=== PATIENT | male | born 2000 | race Two or more races ===

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

== ENCOUNTER → 2022-02-05 09:32 | Outpatient (BNVA) | payer MEDICAID, SELFPAY | PROVIDERS: PCP Nurse Practitioner; Visit Provider Internal Medicine Cardiovascular Disease | DX: R42 Dizziness and giddiness (principal); R07.9 Chest pain, unspecified; I45.6 Pre-excitation syndrome; I49.8 Other specified cardiac arrhythmias; R94.31 Abnormal electrocardiogram [ECG] [EKG]; E78.00 Pure hypercholesterolemia, unspecified; F41.9 Anxiety disorder, unspecified | CPT/HCPCS: 93005; 99202 ==

== ENCOUNTER → 2022-02-20 07:52 | Outpatient (REF) | payer MEDICAID, SELFPAY ==
--- NOTE | 2022-02-20 08:01 | CA_ITS ---
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 Prior to exercise he reported some sharp pains in his chest that resolved and did not reoccur with exercise. Test reviewed with Dr Olivarez. Referred By: Raman Olivarez Overread By: MARYLIN KOHLER
--- NOTE | 2022-02-20 08:01 | CA_ITS ---
Transthoracic Echocardiogram Patient (Last, First, Middle): Sushil Barroso, Gender: Male Date of : 2000 Age: 21 Procedure Date: 02/20/2022 Procedure Type: Transthoracic Echocardiogram Location: OP Height: 185.42 cm Weight: 95.26 kg BSA: 2.20 m2 Heart Rate: 55 bpm BP: 118 / 60 mmHg Needle Loom Setter: SB Referring MD: Raman Olivarez MD Symptoms: I45.6 - Pre-excitation syndrome Study Quality: Adequate w contrast ECG Rhythm: Bradycardia Conclusions: - Essentially normal stufy. Findings Procedure Information Contrast agent, definity, is being given per protocol without apparent complications. Left Ventricle Normal left ventricular size, thickness, systolic function, and wall motion. The visually estimated ejection fraction is between 55-60%. Diastolic function is normal for age. Right Ventricle Normal right ventricular cavity size and systolic function. Atria Both atria are normal in size. Aortic Valve Normal aortic valve structure and function. There is no aortic valve stenosis. There is no aortic valve regurgitation. Mitral Valve Normal mitral valve structure and function. There is no mitral valve regurgitation. There is no mitral valve stenosis. Pulmonic Valve Normal pulmonic valve structure and function. There is trace pulmonic valve regurgitation. Tricuspid Valve Normal tricuspid valve structure and function. There is no tricuspid valve regurgitation. Normal right atrial pressure. There is no evidence of pulmonary hypertension. Great Vessels All visible segments of the aorta are normal in size. The visualized portions of the pulmonary artery and branches are normal. Venous The inferior vena cava is normal in size and collapses greater than 50% with inspiration. Pericardium/Pleural There is no evidence of pericardial effusion. Prior Study Comparison No prior study available for comparison. Measurements 2D Linear Measurements IVSd: 0.77 0.6-0.9/0.6-1.0 cm LVIDd: 5.81 3.9-5.3/4.2-5.9 cm LVIDd Index: 2.64 2.4-3.2/2.2-3.1 cm/m2 LVIDs: 4.24 2.0-3.6 cm LVPWd: 0.55 0.7-1.1 cm LA Diam: 3.60 2.7-3.8/3.0-4.0 cm LAIDs Index: 1.64 1.5-2.3 cm/m2 LV Mass: 173.32 67-162/88-224 g LV Mass Index: 78.78 43-95/49-115 g/m2 LVOT Diam: 2.30 3.0+(-)1.3 cm 2D Systolic Function EF 4C: 59.70 >55% EF 2C: 67.80 >55% EF BiP: 63.40 >55% Mitral Valve MV Pk E: 0.77 MV PK A: 0.38 MV Decel Time: 228.00 E/A: 2.00 E'Lateral: 16.30 E'Medial: 11.00 E/E' Med: 7.00 E/E' Lat: 4.70 PHT: 67.00 MVA PHT: 3.28 Decel [place]: 3.36 Aortic Valve AoV Pk Sage: 1.38 AoV Mn Sage: 0.96 AoV VTI: 0.31 AoV Pk Grad: 8.00 Aov Mn Grad: 4.00 DEYSI Cont.VTI: 3.23 LVOT LVOT Pk Sage: 1.19 LVOT Mn Sage: 0.82 LVOT VTI: 0.24 LVOT Pk Grad: 6.00 LVOT Mn Grad: 3.00 LVOT Diam: 2.30 LVOT Area: 4.15 Diastolic Function MV Pk E: 0.77 MV Pk A: 0.38 E/A: 2.00 E'Medial: 11.00 E/E' Med: 7.00 E' Laterial: 16.30 E/E' Lat: 4.70 Right Ventricle TAPSE (mm): 20.90 TVS' Sage: 11.50 Tricuspid Valve TR Pk Sage: 1.93 TR Pk Grad: 15.00 RA Press: 3.00 RVSP: 18.00 Great Vessels Aorta Sinus of Valsalva: 2.80 2.0-3.5 cm Ao Asc: 2.50 2.1-3.4 cm Pulmonary Veins Pulm Vein S/D 0.40 Pulmonary Valve PV Pk Sage: 0.98 Peak PV Grad: 4.00 Updated in Other Vendor System with Status of Final Raman Olivarez MD electronically signed on 02/20/2022 4:24:26 PM with status of Final
--- NOTE | 2022-02-20 08:01 | HM_ITS ---
* Total monitoring time 18 days with the compliance wear time of 9.4%. * Indication, pre-excitation syndrome * Underlying rhythm is sinus. Baseline rate 77/Min. Evidence of pre- excitation. * Rare supraventricular ectopy. * No significant arrhythmias. * Several symptoms mentioned including chest pain, chest pressure, dizziness, lightheadedness, irregular beat, tired all generally associated with sinus rhythm. MTDD
== END ==
LOC: HO.CARD 07:52
PROVIDERS: PCP Nurse Practitioner; Visit Provider Internal Medicine Cardiovascular Disease
DX: I45.6 Pre-excitation syndrome (principal)
CPT/HCPCS: 93017; 93270; 93306; Q9957

== ENCOUNTER 2022-03-22 06:17 | Emergency (ER) | payer MEDICAID, SELFPAY ==
--- NOTE | 2022-03-22 | ECG_ITS ---
Test Reason : sob Blood Pressure : / mmHG Vent. Rate : 050 BPM Atrial Rate : 050 BPM P-R Int : 110 ms QRS Dur : 142 ms QT Int : 476 ms P-R-T Axes : 071 -07 072 degrees QTc Int : 433 ms Sinus bradycardia with sinus arrhythmia Ytecb-Rzjlskvix-Xsgtb Abnormal ECG No previous ECGs available Referred By: Generic ED Physician Electronically Signed By:JANUARY SPANGLER MD
[2022-03-22 06:33] VITALS: BP 115/67; PULSE 50; RESP 20; TEMP 36.7; O2SAT 97; BMI 30.3
[2022-03-22 07:05] LABS: IDNOW Serial# 55D5AD1C; IDNOW Serial# 6674DD1D; Influenza A Negative (Negative); Influenza B2 Negative (Negative)
[2022-03-22 07:06] LABS: COVID-19 Test Negative (Negative)
[2022-03-22 07:36] VITALS: BP 109/60; PULSE 57; RESP 16; TEMP 36.4; O2SAT 100
--- NOTE | 2022-03-22 07:48 | ED.GENADULT ---
HPI - General Adult General Chief complaint: Dyspnea Stated complaint: dr perla told to come in, SOB Time Seen by Provider: 03/22/22 07:22 Source: patient Limitations: no limitations History of Present Illness HPI narrative: This is a 21-year-old male with history of Xkouq-Minbreetl-Qghjm, who was wearing an event monitor. The patient was changing out the monitor last night when he developed shortness of breath. The patient states symptoms did not last very long. Denies shortness of breath now. He has felt lightheaded off and on. Denies any chest pain, denies feeling like his heart was racing. He is wearing the event monitor for a month which is completing this coming weekend. Related Data Home Medications Medication Instructions Recorded Confirmed No Known Home Meds 02/05/22 02/05/22 Allergies Allergy/AdvReac Type Severity Reaction Status Date / Time No Known Allergies Allergy Verified 02/05/22 09:35 Review of Systems Review of Systems: Yes all other systems are reviewed and are negative Constitutional: Constitutional: Reports as per HPI and Denies fever(s) Eyes: Eyes: Reports as per HPI and Reports no additional eye complaints ENT: Reports system reviewed and no additional complaints, except as documented, Reports as per HPI, Reports dizziness, Denies nasal congestion, Denies nasal discharge and Denies sore throat Cardiovascular: Cardiovascular: Reports as per HPI, Denies chest pain and Reports dyspnea Respiratory: Respiratory: Reports as per HPI, Denies cough and Reports dyspnea Gastrointestinal: Gastrointestinal: Reports as per HPI, Denies abdominal pain, Denies diarrhea and Denies vomiting Musculoskeletal: Musculoskeletal: Reports no additional musculoskeletal complaints and Denies numbness Integumentary/Breasts: Skin/Breast: Reports as per HPI and Denies rash Neurologic: Reports as per HPI, Reports dizziness, Denies focal weakness and Denies numbness Psychiatric: Psychiatric: Reports no additional psychiatric complaints and Reports as per HPI Endocrine: Endocrine: Reports no additional endocrine complaints and Reports as per HPI Hematologic/Lymphatic: Hematologic/Lymphatic: Reports no additional hematologic/lymphatic complaints, Reports as per HPI and Reports other (No peripheral edema) [facility] Past Medical History Medical History (Updated 03/22/22 @ 08:34 by sAh Loja MD) High cholesterol Social History Social History (Updated 02/05/22 @ 09:44 by Nadia Archer) Alcohol intake: former Year quit: 2020 Patient Tobacco Use Status: Former Tobacco user Quit Date: 2021 Smoked in Last 30 Days: No Use of substances other than those prescribed or required for medical reasons: No Advance Directives: No Physical Exam ED Vital Signs: Vital Signs - 24 hr 03/22/22 06:33 03/22/22 07:36 Temperature 98.1 F 97.6 F Pulse Rate 50 57 Respiratory Rate 20 16 Blood Pressure 115/67 109/60 Pulse Oximetry 97 100 Oxygen Delivery Method Room Air Room Air BMI result Body Mass Index 30.3 Const General: no acute distress Orientation/consciousness: patient oriented x3 HENMT Head: Yes normal to inspection General nose exam: Normal external nose present Mouth: moist mucous membranes Throat: Yes posterior oropharynx normal, Yes tonsils normal and Yes uvula midline Eyes Eyelids: Yes eyelids normal Conjunctivae: conjunctivae normal Pupils: Equal, round and reactive pupils present Neck Neck: Yes supple Resp Effort & Inspection: normal respiratory effort Auscultation: clear to auscultation bilaterally Cardio Rate: regular rate Rhythm: regular rhythm Heart sounds: S1 normal heart sound present, S2 normal heart sound present, no gallops, no murmurs and no rubs GI Inspection: No distended Palpation (GI): Soft to palpation and nontender Auscultation: normal bowel sounds Skin General skin exam: other (Warm and dry) Neuro General: patient oriented x3 and CN's II-XI intact bilaterally Cranial nerves: Yes Equal, round and reactive pupils present Extrem General: Yes no pedal edema Psych Affect: normal affect Attitude: cooperative Medical Decision Making Medical Decision Making MDM Narrative: The patient experienced brief shortness of breath and had called the immigration guard, who ordered for the patient come to the ED. Differential Diagnosis Differential Diagnoses: The differential diagnosis associated with the presentation includes Tachyarrhythmia, congestive heart failure, pulmonary embolism, anxiety Consult Healthcare Provider Management of the patient was discussed with: Tierce Filler Discussed with Dr. Perla, who stated that the patient had called at around 3 in the morning, and not knowing the patient he wanted him evaluated to make sure he had no concerning cause for his dyspnea Lab Data [facility] Lab Attestation statement: I reviewed the patient's lab results. Result Diagrams: 03/22/22 08:05 03/22/22 08:05 Labs: Lab Results 03/22/22 03/22/22 03/22/22 Range/Units 06:39 06:39 08:05 WBC 7.7 (4.8-10.8) X10*3/uL RBC 5.12 (4.60-5.80) X10*6/uL Hgb 14.1 (14.0-18.0) g/dl Hct 41.6 L (42.0-52.0) % MCV 81.3 (80.0-98.0) fL MCH 27.5 (27.0-33.0) pg MCHC 33.9 (31.0-36.0) g/dl RDW 12.5 (11.0-16.0) % Plt Count 302 (160-400) X10*3/uL MPV 9.9 (9.4-12.4) fL Immature Gran % (Auto) 0.1 (0.0-0.4) % Neut % (Auto) 40.8 L (45-73) % Lymph % (Auto) 42.1 H (20-40) % Clinch % (Auto) 10.6 (2-11) % Eos % (Auto) 5.6 H (0-4) % Baso % (Auto) 0.8 (0-2) % Lymph # (Auto) 3.3 (1.2-4.9) X10*3/uL Clinch # (Auto) 0.8 (0.1-1.2) X10*3/uL Eos # (Auto) 0.4 (0.0-0.4) X10*3/uL Baso # (Auto) 0.1 (0.0-0.2) X10*3/uL Abs Immat Gran (auto) 0.01 (0.00-0.03) X10*3/uL Absolute Neuts (auto) 3.2 (2.0-8.3) x10*3/uL Absolute Nucleated RBC 0.000 (0.0-0.012) X10*3/uL Nucleated RBC % (auto) 0.0 (0.0-0.2) /100WBC Sodium (135-145) mmol/L Potassium (3.3-5.1) mmol/L Chloride (96-108) mmol/L Carbon Dioxide (22-29) mmol/L Anion Gap (12-20) BUN (9-16) mg/dL Creatinine (0.5-1.4) mg/dL Estim Creat Clear Calc Estimated GFR Random Glucose (60-115) mg/dL Calcium (8.4-10.2) mg/dL COVID-19 (MACEY) Negative (Negative) COVID-19 Clin Com See Note Influenza Type A (ALEXEY) Negative (Negative) Influenza Type B (ALEXEY) Negative (Negative) Influenza A & B Note See Note 03/22/22 Range/Units 08:05 WBC (4.8-10.8) X10*3/uL RBC (4.60-5.80) X10*6/uL Hgb (14.0-18.0) g/dl Hct (42.0-52.0) % MCV (80.0-98.0) fL MCH (27.0-33.0) pg MCHC (31.0-36.0) g/dl RDW (11.0-16.0) % Plt Count (160-400) X10*3/uL MPV (9.4-12.4) fL Immature Gran % (Auto) (0.0-0.4) % Neut % (Auto) (45-73) % Lymph % (Auto) (20-40) % Clinch % (Auto) (2-11) % Eos % (Auto) (0-4) % Baso % (Auto) (0-2) % Lymph # (Auto) (1.2-4.9) X10*3/uL Clinch # (Auto) (0.1-1.2) X10*3/uL Eos # (Auto) (0.0-0.4) X10*3/uL Baso # (Auto) (0.0-0.2) X10*3/uL Abs Immat Gran (auto) (0.00-0.03) X10*3/uL Absolute Neuts (auto) (2.0-8.3) x10*3/uL Absolute Nucleated RBC (0.0-0.012) X10*3/uL Nucleated RBC % (auto) (0.0-0.2) /100WBC Sodium 142 (135-145) mmol/L Potassium 4.0 (3.3-5.1) mmol/L Chloride 108 (96-108) mmol/L Carbon Dioxide 25 (22-29) mmol/L Anion Gap 13 (12-20) BUN 12 (9-16) mg/dL Creatinine 0.86 (0.5-1.4) mg/dL Estim Creat Clear Calc 175.2 Estimated GFR > 60 Random Glucose 85 (60-115) mg/dL Calcium 9.7 (8.4-10.2) mg/dL COVID-19 (MACEY) (Negative) COVID-19 Clin Com Influenza Type A (ALEXEY) (Negative) Influenza Type B (ALEXEY) (Negative) Influenza A & B Note Independent Interpretation I performed an independent interpretation of an: EKG Interpretation: Sinus bradycardia with a sinus arrhythmia, overall rate of 50. Delta waves present consistent with Wwvaj-Hjttjjmrf-Eyfkr. Short NM interval. Discharge Plan Discharge Clinical Impression: WPW (Qdoud-Ilydtkgvy-Edqav syndrome), Bradycardia Patient Disposition: Home, Self-Care Instructions: Bradycardia (ED), Abyka-Ukmkpzgbw-Rpkxm Syndrome (ED) Additional Instructions: Follow-up with your immigration guard or primary care physician. Return for any new or worsened symptoms. Your EKG here did not show any concerning findings except the underlying Fhuoo-Illamiinp-Sltws, but there was no rapid or irregular rhythm Prescriptions: No Action No Known Home Meds
[2022-03-22 08:10] LABS: MANUAL DIFF FLAG NO
[2022-03-22 08:12] LABS: Basophils Absolute Auto 0.1 X10*3/uL (0.0-0.2); Basophils Percent Auto 0.8 % (0-2); Eosinophils Absolute Auto 0.4 X10*3/uL (0.0-0.4); Eosinophils Percent Auto 5.6 % (0-4); Hematocrit 41.6 % (42.0-52.0); Hemoglobin 14.1 g/dl (14.0-18.0); Imm Gran Abs Auto 0.01 X10*3/uL (0.00-0.03); Imm Gran Pct Auto 0.1 % (0.0-0.4); Lymphocytes Absolute Auto 3.3 X10*3/uL (1.2-4.9); Lymphocytes Percent Auto 42.1 % (20-40); Mean Corpuscular HGB Conc 33.9 g/dl (31.0-36.0); Mean Corpuscular Hemoglobin 27.5 pg (27.0-33.0); Mean Corpuscular Volume 81.3 fL (80.0-98.0); Mean Platelet Volume 9.9 fL (9.4-12.4); Monocytes Absolute Auto 0.8 X10*3/uL (0.1-1.2); Monocytes Percent Auto 10.6 % (2-11); Neutrophils Absolute Auto 3.2 x10*3/uL (2.0-8.3); Neutrophils Percent Auto 40.8 % (45-73); Platelet Count 302 X10*3/uL (160-400); Red Blood Count 5.12 X10*6/uL (4.60-5.80); Red Cell Distribution Width 12.5 % (11.0-16.0); White Blood Count 7.7 X10*3/uL (4.8-10.8)
[2022-03-22 08:25] LABS: Anion Gap 13 (12-20); Blood Urea Nitrogen 12 mg/dL (9-16); Calcium 9.7 mg/dL (8.4-10.2); Carbon Dioxide 25 mmol/L (22-29); Chloride 108 mmol/L (96-108); Creatinine Clr Calc Pharmacy 175.2; Estimated Glomerular Filt Rate > 60; Glucose Random 85 mg/dL (60-115); Sodium 142 mmol/L (135-145)
== END 2022-03-22 09:56 | disposition home or self-care (01) ==
PROVIDERS: Emergency Provider Emergency Medicine
DX: I45.6 Pre-excitation syndrome (principal); R00.1 Bradycardia, unspecified; I49.8 Other specified cardiac arrhythmias; Z20.822 Contact with and (suspected) exposure to COVID-19; R06.02 Shortness of breath; Z87.891 Personal history of nicotine dependence
CPT/HCPCS: 36415; 80048; 85025; 87502; 87635; 93005; 99283; 99284

== ENCOUNTER 2022-05-14 15:10 | Emergency (ER) | payer MEDICAID, SELFPAY ==
[2022-05-14 15:16] VITALS: BP 134/79; PULSE 76; RESP 16; TEMP 36.6; O2SAT 97; BMI 30.6
--- NOTE | 2022-05-14 15:20 | ED_ITS ---
HPI - Chest Pain General Chief Complaint: General Medical Stated Complaint: chest pain, not breathing well Time Seen by Provider: 05/14/22 19:43 Source: patient and RN notes reviewed Mode of arrival: ambulatory Limitations: no limitations History of Present Illness HPI narrative: This is a 33-uqin-fdo-male, with a past medical history of newly diagnosed WPW, presenting to the emergency department with complaints of intermittent, unchanged, ongoing chest pain. Recent diagnosis of WPW, and reports that he stays awake at night due to anxiety surrounding chest pain and new diagnosis. Patient has a senior net developer architect, and ablation is scheduled for 05/26/22. No shortness of breath, nausea, vomiting or diarrhea. MD complaint: chest pain Pertinent past history: other (WPW) Timing of current episode: constant Prior episodes: Yes Onset: during rest Quality: aching Relieving factors: nothing Exacerbating factors: nothing Treatment prior to arrival: none Related Data Previous Rx's Medication Instructions Recorded hydroxyzine HCl 25 mg tablet 25 mg PO BEDTIME #14 tabs 05/14/22 Allergies Allergy/AdvReac Type Severity Reaction Status Date / Time No Known Allergies Allergy Verified 02/05/22 09:35 Review of Systems Review of Systems: Yes all other systems are reviewed and are negative [facility] Past Medical History Medical History (Updated 05/14/22 @ 19:43 by AYE Perez) High cholesterol Social History Social History (Updated 02/05/22 @ 09:44 by Nadia Archer) Alcohol intake: former Year quit: 2020 Patient Tobacco Use Status: Former Tobacco user Quit Date: 2021 Advance Directives: No Advance Directives Information Provided: No Physical Exam Vital Signs: Vital Signs: Last Vital Signs Temp 98 F 05/14/22 15:16 Pulse 62 05/14/22 19:40 Resp 18 05/14/22 19:40 BP 124/75 05/14/22 19:40 Pulse Ox 98 05/14/22 19:40 O2 Del Method 05/14/22 19:40 BMI result Body Mass Index 30.6 Appearance: Alert. Oriented X3. No acute distress. Eyes: Pupils equal, round and reactive to light. ENT: Pharynx normal. Neck: Normal inspection. Neck supple. CVS: Normal heart rate and rhythm. Pulses normal. Respiratory: No respiratory distress. Breath sounds normal. Skin: Skin warm and dry. Normal skin color. Normal skin turgor. No rashes. Extremities: No lower extremity edema. Neuro: Oriented X 3. No motor deficit. No sensory deficit. Course Course Course Narrative: HARISH - 89-sdlx-msf-male presenting today with complaints of intermittent chest pain. Recent diagnosis of WPW, and reports that he stays awake at night due to anxiety surrounding chest pain and new diagnosis. Patient has a senior net developer architect, and ablation is scheduled for 05/26/22. VSS in triage, symptoms most likely anxiety related. EKG ordered. Reevaluation(s) Reevaluation #1: Patient re-evaluated, VS remain stable. Patient fell asleep in waiting room. Patient's cardiology notes were reviewed and symptoms appear chronic. Will prescribe hydroxyzine at bedtime to help with anxiety associated with sleeping. Time: 19:46 Medical Decision Making Differential Diagnosis Differential Diagnoses: The differential diagnosis associated with the presentation includes anxiety, doubt ACS or PE, atypical chest pain, arrhythmia, muscular pain. Independent Interpretation I performed an independent interpretation of an: EKG Interpretation: Normal sinus rhythm with a ventricular rate of 69bpm with delta wave presence and no significant changes from prior in February 2022. External Record Review External record reviewed: Office record Discharge Plan Discharge Clinical Impression: WPW (Favax-Mmktktyvn-Zcytr syndrome), Anxiety Patient Disposition: Home, Self-Care Instructions: Anxiety (ED), Wezqt-Fucfrlygk-Pjghz Syndrome (ED) Additional Instructions: Take medication as prescribed. Your EKG today was the same as before which is reassuring. Follow up with your primary care physician and senior net developer architect. If you develop new or worsening symptoms call 911 or come back to the ER for further evaluation. Prescriptions: New hydroxyzine HCl 25 mg tablet 25 mg PO BEDTIME Qty: 14 0RF Interventions: ED Discharge Assessment Last Done: 05/14/22 19:44 Discharge Date/Time: 05/14/22 19:45 Print Language: [place]se
--- NOTE | 2022-05-14 15:20 | ECG_ITS ---
Test Reason : CHEST PAIN Blood Pressure : / mmHG Vent. Rate : 069 BPM Atrial Rate : 069 BPM P-R Int : 116 ms QRS Dur : 128 ms QT Int : 400 ms P-R-T Axes : 052 010 104 degrees QTc Int : 428 ms Normal sinus rhythm with sinus arrhythmia Nonim-Esjmnjlty-Aqkrg Abnormal ECG When compared with ECG of 22-MAR-2022 07:48, No significant change was found Referred By: Michelle Xiong Electronically Signed By:RIGOBERTO MUELLER
[2022-05-14 19:40] VITALS: BP 124/75; PULSE 62; RESP 18; O2SAT 98
== END 2022-05-14 19:45 | disposition home or self-care (01) ==
PROVIDERS: Emergency Provider Emergency Medicine
DX: I45.6 Pre-excitation syndrome (principal); R07.89 Other chest pain; F41.1 Generalized anxiety disorder; F43.0 Acute stress reaction; Z87.891 Personal history of nicotine dependence
CPT/HCPCS: 93005; 99283

== ENCOUNTER 2023-01-05 14:50 | Outpatient (AMB) | payer MEDICAID, SELFPAY ==
[2023-01-05 14:51] VITALS: BP 120/74; PULSE 73; BMI 32.0
--- NOTE | 2023-01-05 14:51 | A.OFFVIS_ITS ---
Intake Vital Signs 01/05/23 14:51 Height 6 ft 1 in Weight 242 lb 15.19 oz BMI 32.0 BP 120/74 Blood Pressure Location Lt brachial Position Sitting Pulse 73 Pulse Source Pulse Oximeter Intake Visit Reasons: 3 mth fu karely, ett, echo (overdue Intake Note: 3 mth karely, ett, echo (overdue) Allergies No Known Allergies Allergy (Verified 01/05/23 14:56) HPI 3 mth fu karely, ett, echo (overdue HPI Details Sushil is a 22-year-old male with finding of WPW on EKGs last year. He underwent cardiac testing and occluding a exercise stress test, echocardiogram and cardiac event monitor. He also underwent ablation 05/2022 at [facility] and now presents for follow-up. Today he reports he has been feeling very well in recent months. His anxiety levels are much decreased. He says much of the symptoms he was feeling, palpitations, chest discomfort, lightheadedness were all related to his anxiety. After the he underwent the ablation he started seeing a counselor and now is feeling much better. He is going to school at [employer] and does after school activities such as [employer]. 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 He has no concerning symptoms with his physical activity. No heart palpitations, presyncope, syncope, falls. No exertional chest discomfort or shortness of breath. [facility] Medical History (Updated 01/05/23 @ 16:55 by Mary Oneal NP-C) WPW (Pnpyz-Wsalyczvt-Omnql syndrome) High cholesterol Social History Alcohol intake: former Year quit: 2020 Patient Tobacco Use Status: Former Tobacco user Quit Date: 2021 Review of Systems Const All systems reviewed & are unremarkable except as noted in HPI and below ENT Denies dizziness Card Denies chest pain, Denies chest pain at rest, Denies chest pain with activity, Denies rapid heart rate, Denies pedal edema, Denies edema, Denies leg edema, Denies lightheadedness, Denies palpitations, Denies dyspnea, Denies dyspnea on exertion and Denies orthopnea Resp Denies cough, Denies dyspnea and Denies dyspnea on exertion GI Denies hematochezia and Denies change in stool character Musc Denies abnormal gait, Denies limited range of motion, Denies muscle cramps, Denies muscle weakness, Denies numbness, Denies radiating pain into limb, Denies stiffness and Denies tingling Neuro Denies abnormal gait, Denies dizziness, Denies numbness and Denies tingling Endo Denies palpitations Physical Exam Vital Signs: BMI result Body Mass Index 32.0 Const General: cooperative, healthy appearing, comfortable and no acute distress Orientation/consciousness: patient oriented x3 Neck Neck: Yes normal visual inspection Resp Effort & Inspection: normal respiratory effort Auscultation: clear to auscultation bilaterally, no crackles, no rales, no rhonchi and no wheezes Cardio Jugular venous distension: no JVD Rate: regular rate Rhythm: regular rhythm Heart sounds: S1 normal heart sound present, S2 normal heart sound present, no murmurs and no rubs Neuro General: patient oriented x3 Extrem General: Yes normal to inspection Psych Appearance: grossly normal Mental Status: mental status grossly normal Speech and movement: Normal speech and movement present Assessment & Plan Assessment & Plan (1) WPW (Fuial-Chmatxoov-Ildcc syndrome): Code(s): I45.6 - Pre-excitation syndrome Plan: Newer finding of WPW pattern on EKGs. He was experiencing symptoms like related to anxiety. He had an echocardiogram 02/20/2022 which was normal, EF 55-60%. A 30 day cardiac event monitor done 02/20/2022, worn for 18 days only 9.4% of that time showing sinus rhythm 77%, evidence of pre-excitation, rare SVE. An exercise stress test done 02/20/2022 with exercise 10 minutes, no arrhythmia. He was seen by Dr. Haq for EP and did undergo an EP study on 05/26/2022, report reviewed indicating that no SVT or other arrhythmia was able to be induced, no ablation required. After that test he tells me he started counseling and has been feeling much better. His anxiety is well controlled currently. He is tolerating normal activities of school, work and routine exercise. No need for daily medication. Cardiology follow-up in 1 year, sooner if needed (2) Chest pain: Code(s): R07.9 - Chest pain, unspecified Qualifiers: Chest pain type: unspecified Qualified Code(s): R07.9 - Chest pain, unspecified Plan: Atypical - prior to having a EP study. (3) Anxiety: Code(s): F41.9 - Anxiety disorder, unspecified Coding Level of Care Code Est Pt Level 3 (39855) Diagnoses WPW (Zpdcr-Pylhpibqh-Scciv syndrome) I45.6 Chest pain, unspecified type R07.9 Chest pain type: unspecified Anxiety F41.9 Time Spent (min) 22
== END 2023-01-05 15:09 | disposition home or self-care (01) ==
PROVIDERS: Visit Provider Nurse Practitioner Family
DX: I45.6 Pre-excitation syndrome (principal); R07.9 Chest pain, unspecified; F41.9 Anxiety disorder, unspecified
CPT/HCPCS: 99213

== ENCOUNTER → 2023-01-05 14:50 | Outpatient (BNVA) | payer MEDICAID, SELFPAY | PROVIDERS: Visit Provider Nurse Practitioner Family | DX: I45.6 Pre-excitation syndrome (principal); R07.9 Chest pain, unspecified; F41.9 Anxiety disorder, unspecified | CPT/HCPCS: 99212 ==

== ENCOUNTER 2024-04-25 15:21 | Outpatient (AMB) | payer MEDICAID, SELFPAY ==
[2024-04-25 15:39] VITALS: BP 114/82; PULSE 84; BMI 34.6
--- NOTE | 2024-04-25 15:39 | A.OFFVIS_ITS ---
Vital Signs 04/25/24 15:39 Height 6 ft 1 in Weight 261 lb 14.546 oz BMI 34.6 BP 114/82 Blood Pressure Location Lt brachial Position Sitting Pulse 84 Pulse Source Monitor Intake Visit Reasons: overdue fu (rs x2--pt) Fitting Room Supervisor Required: No Allergies No Known Allergies Allergy (Verified 04/25/24 15:42) Medication List - Last Reconciled 04/25/24 by Mary Oneal, ASSISTANT PRINTER FLOOR COVERING-C hydroxyzine HCl 25 mg PO BEDTIME HPI HPI overdue fu (rs x2--pt): Details: Sushil is a 23-year-old male with past medical history of WPW, with prior EP study showing no inducible arrhythmia. He now presents for follow-up. Today he reports he has been feeling very well in recent months. His anxiety levels are under control. 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 He has no heart palpitations, lightheadedness, presyncope, syncope. He has no chest discomfort or shortness of breath. He reports good activity tolerance. [facility] Medical History WPW (Iquli-Zdnnghide-Uaphv syndrome) High cholesterol Social History Alcohol intake: former Year quit: 2020 Patient Tobacco Use Status: Former Tobacco user Review of Systems Const All systems reviewed & are unremarkable except as noted in HPI and below ENT Denies dizziness Card Denies chest pain, Denies chest pain at rest, Denies chest pain with activity, Denies rapid heart rate, Denies pedal edema, Denies edema, Denies leg edema, Denies lightheadedness, Denies palpitations, Denies dyspnea, Denies dyspnea on exertion and Denies orthopnea Resp Denies cough, Denies dyspnea and Denies dyspnea on exertion GI Denies hematochezia and Denies change in stool character Musc Denies abnormal gait, Denies limited range of motion, Denies muscle cramps, Denies muscle weakness, Denies numbness, Denies radiating pain into limb, Denies stiffness and Denies tingling Neuro Denies abnormal gait, Denies dizziness, Denies numbness and Denies tingling Endo Denies palpitations Physical Exam Vital Signs: Last Vital Signs Pulse 84 04/25/24 15:39 BP 114/82 04/25/24 15:39 BMI result Body Mass Index 34.6 Const General: cooperative, healthy appearing, comfortable and no acute distress Orientation/consciousness: patient oriented x3 Neck Neck: Yes normal visual inspection Resp Effort & Inspection: normal respiratory effort Auscultation: clear to auscultation bilaterally, no crackles, no rales, no rhonchi and no wheezes Cardio Jugular venous distension: no JVD Rate: regular rate Rhythm: regular rhythm Heart sounds: S1 normal heart sound present, S2 normal heart sound present, no murmurs and no rubs Neuro General: patient oriented x3 Extrem General: Yes normal to inspection Psych Appearance: grossly normal Mental Status: mental status grossly normal Speech and movement: Normal speech and movement present Office Procedures EKG Details: Today, read by me, sinus rhythm with sinus arrhythmia, delta wave consistent with Hbsqf-Dvuifxptk-Rwqbc, rate 84 27518-Igpoeucthgqwwvjfv, Complete Assessment & Plan Assessment & Plan (1) WPW (Ymuyi-Zmsjvbldq-Alwgv syndrome): Code(s): I45.6 - Pre-excitation syndrome Category: Medical Plan: Patient has WPW pattern on EKGs. He had an echocardiogram 02/20/2022 which was normal, EF 55-60%. A 30 day cardiac event monitor done 02/20/2022, worn for 18 days only 9.4% of that time showing sinus rhythm 77%, evidence of pre- excitation, rare SVE. An exercise stress test done 02/20/2022 with exercise 10 minutes, no arrhythmia. He was seen by Dr. Haq for EP and did undergo an EP study on 05/26/2022, report reviewed indicating that no SVT or other arrhythmia was able to be induced, no ablation required. Today he reports feeling well with no heart palpitations. He has good activity tolerance. No need for daily medication. Will check with his primary tubular splitting machine tender regarding the frequency of follow-up visits. (2) Anxiety: Code(s): F41.9 - Anxiety disorder, unspecified Category: Medical Plan: History of anxiety, currently his symptoms are better controlled. Plan Time spent on chart review, documentation, interview and assessment Coding Level of Care Code Est Pt Level 3 (43586) Complex EM visit Add On G2211 Diagnoses WPW (Iguki-Rgmpegiua-Lpmcl syndrome) I45.6 Anxiety F41.9 CPT Codes EKG - CPT: 61402-Suliyvioosoyxqxsu, Complete ([id number]) Time Spent (min) 24
--- OUTSIDE RECORDS SUMMARY | 2024-04-25 16:48 | XMS_ITS | Clinical Summary ---
Author Organization [facility] Address [address] [place] [address] [address] [place] [address] Care Team Providers Care Chief Controller Tower Name Role Phone Madelyn Balderas MD Primary Care Pro vider Allergies No known active allergies Medications No known medications Active Problems Problem Noted Date Diagnosed Date WPW (Fxsbv-Nkkqeevzu-Ybcwn syndrome) 06/10/2023 Depression with anxiety 06/10/2023 Health care maintenance 06/10/2023 Dyslipidemia 09/12/2022 Vitamin D deficiency 09/12/2022 Obesity 08/03/2017 Resolved Problems Problem Noted Date Diagnosed Date Resolved Date Allergic rhinitis 09/12/2022 06/10/2023 Immunizations Name Administration Dates Next Due DTaP 11/16/2007, 4,05/23/2003,03/24,01/22/2003 HPV 9-Valent 03/13/2015 HPV, Quadrivalent 01/27/2014 Hep A, ped/adol, 2 dose 03/13/2015,11/16/2007 Hep B, Adolescent or Pediatric 11/23/2003,2002,2002 Hib (HbOC) 02/21/2004, 4,03/23/2003,01/21 IPV 11/16/2007, 4,03/23/2003,01/21 Influenza injectable quadriv alent preservative free 01/22/2022,02/28/2020,04/21/2016 Influenza live intranasal qu adrivalent LIAV4 03/13/2015,01/27/2014 Influenza, IIV3, injectable 02/21/2010 MMR 11/16/2007,11/22/2003 Meningococcal MCV4P ACYW-135 02/28/2020,01/28/20 14 Pfizer Covid-19 Vaccine 12+ 06/10/2023 Pneumococcal Conjugate PCV 7 02/21/2004, 05/22/2003,03/23/2003,01/21 Tdap 01/27/2014 Varicella 11/16/2007,11/22/2003 Social History Tobacco Use Types Packs/Day Years Used Date Smoking Tobacco: Never Smokeless Tobacco: Never Tobacco Cessation:Counseling Given: Not Answered Alcohol Use Standard Drinks/Week Comments Yes 0 (1 standard drink = 0.6 oz pur e alcohol) Social Depression Answer Date Recorded Patient Health Questionnaire-9 Score 6 06/10/2023 Patient Health Questionnaire-9 Score 6 06/10/2023 Last PHQ-9: Questionnaire Data Not on file 0 06/10/2023 Housing Stability Answer Date Recorded What is your housing situation today? I have gonzales gallegos 06/10/[address] you li ve. Do you have problems with any of the following? None of the above 06/10/2023 Food Insecurity Answer Date Recorded Within the past 12 months, y ou worried that your food would run out before you got money to buy more: Never True 06/10/2023 Within the past 12 months,th e food you bought just didn't last and you didn't have enough money to get more: Never True Transportation Answer Date Recorded In the past 12 months, has l ack of transportation kept you from medical appts, meetings, work or from getting things needed for daily living? No 06/10/2023 Utilities Answer Date Recorded In the past 12 months, has t he electric, gas, oil or water company threatened to shut off services in your home? No 06/10/2023 Depression Answer Date Recorded Patient Health Questionnaire-2 Score 4 06/10/2023 Sex and Gender Information Value Date Recorded Sex Assigned at Male 01/20/2022 10:19 AM EDT Legal Sex Male 10:19 AM EDT Gender Identity Male 01/20/2022 10:19 AM EDT Sexual Orientation [place] 06/10/2023 2: 45 PM EDT Last Filed Vital Signs Vital Sign Reading Time Taken Comments Blood Pressure 132/78 06/10/2023 2:36 PM EDT Pulse 89 06/10/2023 2:36 PM EDT Temperature - - Respiratory Rate 20 06/10/2023 2:36 PM EDT Oxygen Saturation 98% 06/10/2023 2:36 PM EDT Inhaled Oxygen Concentration - - Weight 122 kg (268 lb 3.2 oz) 06/10/2023 2:36 PM EDT Height 181.6 cm (5' 11.5 ) 06/10/2023 2:36 PM ED T Body Mass Index 36.88 06/10/2023 2:36 PM EDT Plan of Treatment Health Maintenance Due Date Last Done Comments Chlamydia and Gonorrhea Screening 2002 HIV Screening 2002 Alcohol/Substance Use Screening 2014 Family Planning (PISQ) 2017 Hepatitis C Screening 2020 COVID-19 Vaccine ( season) 2023 06/10/2023, 01/25/2021, 12/20/2020 Influenza Vaccine (#1) 2023 , 02/28/2020, 04/21/2016, Additional history exists DTaP/Tdap/Td Vaccines (7 - Td or Tdap) 01/28/2024 01/27/2014, 11/16/2007, 02/22/2004, Additional history exists Depression Screening 06/09/2024 06/10/2023, 06/10/19 SDOH Screening 06/09/2024 06/10/2023 Tobacco Screening 06/09/2024 06/10/2023 Lipid Panel 04/02/2026 04/02/2021, 04/13/2020 Zoster Vaccines (1 of 2) 2052 RSV Patients and Patients Aged 60 years or older (1 - 1-dose 75+ series) 2077 Hepatitis B Vaccines Completed 11/23/2003, 01/19/2003, 2002 HIB Vaccines Completed 02/21/2004, 03/2003, 03/23/2003, Additional history exists Pneumococcal Vaccine: Pediatrics (0 to 5 Years) and At-Risk Patients (6 to 49) Years) Aged Out 02/21/2004, 05/22/2003, 03/23/2003, Additional history exists No longer eligible based on patient's age to complete this topic IPV Vaccines Completed 11/16/2007, 03/2003, 03/23/2003, Additional history exists HPV Vaccines Completed 03/13/2015, 01/27/2014 Hepatitis A Vaccines Completed 03/13/2015, 11/16/19 08 Meningococcal Vaccine Completed 02/28/2020, 014 RSV under 20 months Aged Out No longe r eligible based on patient's age to complete this topic Rotavirus Vaccines Aged Out No longer eligible based on patient's age to complete this topic Procedures Procedure Name Priority Date/Time Associated Diagnosis Comments LIPID PANEL, STANDARD Routine 04/02/2021 11:46 AM EST from Last 3 Months or Most Recently Relevant to Health Maintenance Results * (ABNORMAL) LIPID PANEL, STANDARD (04/02/2021 11:46 AM EST) Chol/HDLC Ratio 5.4(H) <5.0 (calc) [facility] Cholesterol, Total 201(H) <170 mg/dL [facility] HDL Cholesterol 37(L) >45 mg/dL [facility] LDL Cholesterol 131(H) <110 mg/dL (calc) [facility] Comment: LDL-C is now calculated using the Gus-Negrete ?? calculation, which is a validated novel method providing ?? better accuracy than the Friedewald equation in the ?? estimation of LDL-C. ?? Gus SS et al. YANY. 2013;310(19): 5371-5618 ?? (http://education.[employer].indico/faq/RTW915) Non-HDL Cholesterol 164(H) <120 mg/dL (calc) [facility] Comment: For patients with diabetes plus 1 major ASCVD risk ?? factor, treating to a non-HDL-C goal of <100 mg/dL ?? (LDL-C of <70 mg/dL) is considered a therapeutic ?? option. Triglycerides 190(H) <90 mg/dL [facility] 04/02/2021 11:4 6 AM EST us Sofia Hall MD LAB BLOOD ORDERABLES Final Re sult [facility] [address] from Last 3 Months or Most Recently Relevant to Health Maintenance Insurance [facility] C3 Care Teams Chief Controller Tower Relationship Specialty Start Date End Date Madelyn Balderas MD [address] [place] [id number] PCP - General Internal Medicine 08/14/22
--- OUTSIDE RECORDS SUMMARY | 2024-04-25 16:48 | XMS_ITS | Clinical Summary ---
Author Organization [facility] Address [address] [place] [address] Care Team Providers Care Membership Counselor Name Role Phone Unavailable Primary Care Provider Unavailabl e Social History Tobacco Use Types Packs/Day Years Used Date Smoking Tobacco: Never Assessed Sex and Gender Information Value Date Recorded Sex Assigned at Not on file Gender Identity Not on file Sexual Orientation Not on file Plan of Treatment Health Maintenance Due Date Last Done Comments HPV Vaccines (1 - Male 3-dos e series) 2017 DTaP,Tdap,and Td Vaccines (1 - Tdap) 2021 Hepatitis B Vaccines (1 of 3 - 19+ 3-dose series) 2021 Annual Well Child Visit (3-2 1 years old) 02/18/2022 Depression Screening 02/18/2022 HIV Screening 02/18/2022 Hepatitis C Screening 02/18/2022 Social Influencers of Health Screening 02/18/2022 COVID-19 Vaccine ( - 2023-2 5 season) 2023 Influenza Vaccine (#1) 2023 HIB Vaccines Aged Out No longer eligi ble based on patient's age to complete this topic Hepatitis A Vaccines Aged Out No long er eligible based on patient's age to complete this topic IPV Vaccines Aged Out No longer eligi ble based on patient's age to complete this topic MMR Vaccines Aged Out No longer eligi ble based on patient's age to complete this topic Meningococcal ACWY Vaccine Aged Out N o longer eligible based on patient's age to complete this topic Pneumococcal Vaccine: Pediat rics (0 to 5 Years) and At-Risk Patients (6 to 64 Years) Aged Out No longer eligible b ased on patient's age to complete this topic RSV Immunization Patients Un claudia 20 months Aged Out No longer eligible b ased on patient's age to complete this topic Varicella Vaccines Aged Out No longer eligible based on patient's age to complete this topic
== END 2024-04-25 16:31 | disposition home or self-care (01) ==
LOC: HO.HCS 15:21
PROVIDERS: Visit Provider Nurse Practitioner Family
DX: I45.6 Pre-excitation syndrome (principal); F41.9 Anxiety disorder, unspecified
CPT/HCPCS: 93010; 99213

== ENCOUNTER → 2024-04-25 15:21 | Outpatient (BNVA) | payer MEDICAID, SELFPAY | PROVIDERS: Visit Provider Nurse Practitioner Family | DX: I45.6 Pre-excitation syndrome (principal); F41.9 Anxiety disorder, unspecified; R94.31 Abnormal electrocardiogram [ECG] [EKG] | CPT/HCPCS: 93005; 99212 ==